=== PATIENT | female | born 1940 | race Hispanic/Latino ===

== ENCOUNTER 2021-05-11 12:25 | Inpatient (IN) | payer SELFPAY ==
[2021-05-11 13:36] LABS: #Lymphocytes 0.7 thou/uL (1.20-3.40); #Monocytes 0.2 thou/uL (0.11-0.59); #Neutrophils 2.6 thou/uL (1.40-6.50); %Basophils 0.3 % (0.0-1.0); %Lymphocytes 19.6 % (21.0-51.0); %Monocytes 5.8 % (0.0-10.0); %Neutrophils 74.3 % (42.0-75.0); Hemoglobin 12.6 g/dL (12.0-16.0); Mean Corpuscular HGB CONC 34.3 g/dL (32.0-36.0); Mean Corpuscular Hemoglobin 31.6 pg (27.0-31.0); Mean Corpuscular Volume 92.1 fL (78.0-98.0); Mean Platelet Volume 8.7 fL (7.4-10.4); Platelet Count 152 thou/uL (130-400); Red Blood Cell (RBC) Count 3.99 mill/uL (4.20-5.40); White Blood Cell (WBC) Count 3.5 thou/uL (4.8-10.8)
[2021-05-11] MEDS ORDERED: Acetaminophen 500 MG TAB ONE (13:44)
[2021-05-11 13:56] LABS: ALT (SGPT) 23 U/L (8-55); AST (SGOT) 30 U/L (5-34); Albumin 3.6 g/dL (3.4-4.8); Alkaline Phosphatase 104 U/L (40-110); Anion Gap 15 mmol/L (10-20); BUN (Urea Nitrogen) 12 mg/dL (9.8-20.1); Bilirubin, Total 0.3 mg/dL (0.2-1.2); Calc. Creatinine Clearance 0 mL/min (70-130); Calcium 8.5 mg/dL (7.8-10.44); Carbon Dioxide 23 mmol/L (23-31); Chloride 95 mmol/L (98-107); Globulin 3.7 g/dL (2.4-3.5); Glucose 327 mg/dL (83-110); Potassium 4.3 mmol/L (3.5-5.1); Protein, Total 7.3 g/dL (5.8-8.1); Sodium 129 mmol/L (136-145)
[2021-05-11] MEDS ORDERED: Dexamethasone 10 MG/ML VIAL ONE (15:26)
[2021-05-11 15:51] LABS: SARS-CoV-2 NAA Rapid Test DETECTED (NotDetected)
[2021-05-11] MEDS ORDERED: Ondansetron PF 4 MG/2 ML Vial IVP PRN (17:12)
[2021-05-11] MEDS ORDERED: Acetaminophen 650 MG Suppository PR PRN (17:12)
[2021-05-11] MEDS ORDERED: Ondansetron ODT 4 MG TAB PO PRN (17:12)
[2021-05-11] MEDS ORDERED: Acetaminophen 325 MG TAB PO PRN (17:12)
[2021-05-11] MEDS ORDERED: Dextrose 5% in Water 1,000 ML IV PRN (17:17)
[2021-05-11] MEDS ORDERED: Dextrose 50% Abboject 50 ML SYRINGE SLOW IVP PRN (17:17)
[2021-05-11 20:49] VITALS: BMI 25.9
[2021-05-11] MEDS ORDERED: REMDESIVIR 200 MG in Sodium Chloride 0.9% 250 ML 210 ML IV SCH (22:00)
[2021-05-11] MEDS: Insulin Regular 300 UNITS/3 ML VIAL SC PRN (22:18)
[2021-05-12] MEDS: Guaifenesin DM 100-10/5 ML UDCUP PO PRN ×2 (04:09→09:17)
[2021-05-12 05:25] LABS: #Lymphocytes 0.6 thou/uL (1.20-3.40); #Monocytes 0.2 thou/uL (0.11-0.59); #Neutrophils 1.6 thou/uL (1.40-6.50); %Basophils 0.5 % (0.0-1.0); %Eosinophils 0.1 % (0.0-10.0); %Lymphocytes 25.7 % (21.0-51.0); %Monocytes 8.3 % (0.0-10.0); %Neutrophils 65.5 % (42.0-75.0); Hemoglobin 12.4 g/dL (12.0-16.0); Mean Corpuscular Hemoglobin 30.8 pg (27.0-31.0); Mean Corpuscular Volume 93.3 fL (78.0-98.0); Platelet Count 145 thou/uL (130-400); RBC Distribution Width 12.1 % (11.5-14.5); Red Blood Cell (RBC) Count 4.02 mill/uL (4.20-5.40); White Blood Cell (WBC) Count 2.4 thou/uL (4.8-10.8)
[2021-05-12 05:49] LABS: ALT (SGPT) 21 U/L (8-55); AST (SGOT) 26 U/L (5-34); Albumin 3.4 g/dL (3.4-4.8); Alkaline Phosphatase 90 U/L (40-110); Bilirubin, Direct 0.1 mg/dL (0.1-0.3); Bilirubin, Total 0.2 mg/dL (0.2-1.2); Protein, Total 6.9 g/dL (5.8-8.1)
[2021-05-12 05:53] LABS: Anion Gap 14 mmol/L (10-20); BUN (Urea Nitrogen) 11 mg/dL (9.8-20.1); Calc. Creatinine Clearance 64 mL/min (70-130); Calcium 8.7 mg/dL (7.8-10.44); Carbon Dioxide 22 mmol/L (23-31); Chloride 104 mmol/L (98-107); Glucose 308 mg/dL (83-110); Potassium 4.2 mmol/L (3.5-5.1); Sodium 136 mmol/L (136-145)
[2021-05-12] MEDS: Insulin Regular 300 UNITS/3 ML VIAL SC PRN ×4 (06:23→22:21)
[2021-05-12] MEDS: Zinc Sulfate 220 MG CAP PO SCH (08:50)
[2021-05-12] MEDS: Ascorbic Acid 500 mg Chewable Tablet PO SCH (08:50)
[2021-05-12] MEDS: Dexamethasone 4 MG TAB PO SCH (08:51)
[2021-05-12] MEDS: Enoxaparin Sodium 30 MG/0.3 ML SYRINGE SC SCH (08:55)
[2021-05-12 12:01] LABS: Potassium, Urine 68.2 mmol/L
[2021-05-12] MEDS: REMDESIVIR 100 MG in Sodium Chloride 0.9% 250 ML 230 ML IV SCH (23:23)
[2021-05-13 06:29] LABS: #Lymphocytes 1.1 thou/uL (1.20-3.40); #Monocytes 0.4 thou/uL (0.11-0.59); #Neutrophils 3.8 thou/uL (1.40-6.50); %Eosinophils 0.2 % (0.0-10.0); %Lymphocytes 20.9 % (21.0-51.0); %Monocytes 8.2 % (0.0-10.0); %Neutrophils 70.7 % (42.0-75.0); Hemoglobin 12.6 g/dL (12.0-16.0); Mean Corpuscular HGB CONC 33.8 g/dL (32.0-36.0); Mean Corpuscular Hemoglobin 31.6 pg (27.0-31.0); Mean Corpuscular Volume 93.4 fL (78.0-98.0); Mean Platelet Volume 9.2 fL (7.4-10.4); Platelet Count 168 thou/uL (130-400); White Blood Cell (WBC) Count 5.4 thou/uL (4.8-10.8)
[2021-05-13] MEDS: Insulin Regular 300 UNITS/3 ML VIAL SC PRN ×4 (06:35→21:28)
[2021-05-13 06:51] LABS: ALT (SGPT) 30 U/L (8-55); AST (SGOT) 34 U/L (5-34); Albumin 3.3 g/dL (3.4-4.8); Alkaline Phosphatase 88 U/L (40-110); Anion Gap 11 mmol/L (10-20); BUN (Urea Nitrogen) 17 mg/dL (9.8-20.1); Bilirubin, Direct 0.1 mg/dL (0.1-0.3); Bilirubin, Total 0.3 mg/dL (0.2-1.2); Calc. Creatinine Clearance 66 mL/min (70-130); Calcium 8.7 mg/dL (7.8-10.44); Carbon Dioxide 26 mmol/L (23-31); Chloride 103 mmol/L (98-107); Globulin 3.4 g/dL (2.4-3.5); Glucose 182 mg/dL (83-110); Potassium 3.9 mmol/L (3.5-5.1); Protein, Total 6.7 g/dL (5.8-8.1); Sodium 136 mmol/L (136-145)
[2021-05-13] MEDS: Dexamethasone 4 MG TAB PO SCH (09:18)
[2021-05-13] MEDS: Enoxaparin Sodium 30 MG/0.3 ML SYRINGE SC SCH (09:18)
[2021-05-13] MEDS: Zinc Sulfate 220 MG CAP PO SCH (09:18)
[2021-05-13] MEDS: Ascorbic Acid 500 mg Chewable Tablet PO SCH (09:18)
[2021-05-13] MEDS ORDERED: Electrolyte Replacement Protocol 1 EACH FS SCH (17:45)
[2021-05-13] MEDS ORDERED: Electrolyte Replacement Protocol FS PRN (17:45)
[2021-05-13] MEDS: NIFEdipine XL 30 MG TAB PO SCH (21:13)
[2021-05-13] MEDS: Atorvastatin Calcium 40 MG TAB PO SCH (21:13)
[2021-05-13] MEDS: Lisinopril 5 MG TAB PO SCH (21:13)
[2021-05-13] MEDS: REMDESIVIR 100 MG in Sodium Chloride 0.9% 250 ML 230 ML IV SCH (21:15)
[2021-05-14 05:09] LABS: ALT (SGPT) 30 U/L (8-55); AST (SGOT) 29 U/L (5-34); Albumin 3.2 g/dL (3.4-4.8); Alkaline Phosphatase 85 U/L (40-110); Anion Gap 13 mmol/L (10-20); BUN (Urea Nitrogen) 17 mg/dL (9.8-20.1); Bilirubin, Direct 0.2 mg/dL (0.1-0.3); Bilirubin, Total 0.4 mg/dL (0.2-1.2); Calc. Creatinine Clearance 64 mL/min (70-130); Calcium 8.5 mg/dL (7.8-10.44); Carbon Dioxide 24 mmol/L (23-31); Chloride 102 mmol/L (98-107); Glucose 229 mg/dL (83-110); Magnesium 1.5 mg/dL (1.6-2.6); Protein, Total 6.5 g/dL (5.8-8.1); Sodium 135 mmol/L (136-145)
[2021-05-14] MEDS: Insulin Regular 300 UNITS/3 ML VIAL SC PRN ×4 (05:29→21:33)
[2021-05-14] MEDS ORDERED: Magnesium 2 GM/50 ML 2 GM in Premix Bag 1 BAG IVPB SCH (06:15)
[2021-05-14] MEDS: Dexamethasone 4 MG TAB PO SCH (09:06)
[2021-05-14] MEDS: Zinc Sulfate 220 MG CAP PO SCH (09:06)
[2021-05-14] MEDS: Enoxaparin Sodium 30 MG/0.3 ML SYRINGE SC SCH (09:06)
[2021-05-14] MEDS: Aspirin Chewable 81 MG TAB PO SCH (09:06)
[2021-05-14] MEDS: NIFEdipine XL 30 MG TAB PO SCH ×2 (09:06→21:46)
[2021-05-14] MEDS: Ascorbic Acid 500 mg Chewable Tablet PO SCH (09:07)
[2021-05-14] MEDS: Lisinopril 5 MG TAB PO SCH ×2 (09:07→21:46)
[2021-05-14] MEDS: glipiZIDE 10 MG TAB PO SCH (09:07)
[2021-05-14] MEDS ORDERED: Dextrose 50% Abboject 50 ML SYRINGE IVP PRN (17:30)
[2021-05-14] MEDS ORDERED: Dextrose 5% in Water 1,000 ML IV PRN (17:30)
[2021-05-14] MEDS: REMDESIVIR 100 MG in Sodium Chloride 0.9% 250 ML 230 ML IV SCH (21:46)
[2021-05-14] MEDS: Atorvastatin Calcium 40 MG TAB PO SCH (21:46)
[2021-05-15 05:40] LABS: ALT (SGPT) 33 U/L (8-55); AST (SGOT) 28 U/L (5-34); Albumin 3.1 g/dL (3.4-4.8); Alkaline Phosphatase 89 U/L (40-110); Bilirubin, Direct 0.2 mg/dL (0.1-0.3); Bilirubin, Total 0.4 mg/dL (0.2-1.2); Calc. Creatinine Clearance 67 mL/min (70-130); Magnesium 1.9 mg/dL (1.6-2.6); Protein, Total 6.3 g/dL (5.8-8.1)
[2021-05-15] MEDS: Insulin Regular 300 UNITS/3 ML VIAL SC PRN ×2 (06:41→12:36)
[2021-05-15] MEDS: Magnesium 2 GM/50 ML 2 GM in Premix Bag 1 BAG IVPB SCH ×2 (06:42→07:30)
[2021-05-15] MEDS: Lisinopril 5 MG TAB PO SCH ×2 (08:15→08:16)
[2021-05-15] MEDS: NIFEdipine XL 30 MG TAB PO SCH ×2 (08:15)
[2021-05-15] MEDS: Enoxaparin Sodium 30 MG/0.3 ML SYRINGE SC SCH (08:15)
[2021-05-15] MEDS: Aspirin Chewable 81 MG TAB PO SCH (08:15)
[2021-05-15] MEDS: Ascorbic Acid 500 mg Chewable Tablet PO SCH (08:16)
[2021-05-15] MEDS: Dexamethasone 4 MG TAB PO SCH (08:16)
[2021-05-15] MEDS: glipiZIDE 10 MG TAB PO SCH (08:16)
[2021-05-15] MEDS: Zinc Sulfate 220 MG CAP PO SCH (08:16)
[2021-05-15] MEDS ORDERED: REMDESIVIR 100 MG in Sodium Chloride 0.9% 250 ML 230 ML IV SCH (12:00)
[2021-05-15 12:54] VITALS: BP 103/53; TEMP 97.8
== END 2021-05-15 15:30 | disposition home or self-care (01) | DRG 177 ==
LOC: ERS 12:25 → ERHOLD 15:03 → OBSVTOIN 17:12 → 2SW 20:26
PROVIDERS: ADMIT Internal Medicine; ATTEND Student in an Organized Health Care Education/Training Program
PROC: 8E0ZXY6 Isolation (ICD-10-PCS; principal; 2021-05-11)
PROC: XW033E5 Introduction of Remdesivir Anti-infective into Peripheral Vein, Percutaneous Approach, New Technology Group 5 (ICD-10-PCS; 2021-05-11)
DX: U07.1 COVID-19 (principal); J12.82 Pneumonia due to coronavirus disease 2019; J96.01 Acute respiratory failure with hypoxia; E87.1 Hypo-osmolality and hyponatremia; I10 Essential (primary) hypertension; E78.5 Hyperlipidemia, unspecified; E11.9 Type 2 diabetes mellitus without complications; D72.810 Lymphocytopenia; T38.0X5A Adverse effect of glucocorticoids and synthetic analogues, initial encounter; Z79.4 Long term (current) use of insulin; Z90.89 Acquired absence of other organs
CPT/HCPCS: 0240U; 36415; 36416; 71045; 80048; 80053; 80076; 82436; 82565; 82728; 83605; 83735; 83930; 83935; 84133; 84300; 84484; 85025; 85379; 86140; 87040; 93005; 96374; J1100; J1650; J1815; J3475; J7050; J8540